=== PATIENT | female | born 1965 | race Caucasian/White ===

== ENCOUNTER → 2020-03-04 13:23 | Outpatient (CLI) | payer OTHER, SELFPAY ==
--- NOTE | ~2020-03-04 | MR_ITS ---
EXAMINATION: MR brain IAC wo/w con DATE: 03/04/2020 14:23 INDICATION: Left-sided tinnitus. TECHNIQUE: Magnetic resonance imaging (MRI) of the brain, brainstem, and internal auditory canals was performed without and with 15 L MultiHance intravenous contrast. Sequences included sagittal and axi al T1-weighted FSE, axial diffusion-weighted FS EPI, axial T2*-weighted GRE, axial T2-weighted FLAIR Propeller, axial T2-weighted Propeller, small hotjt-hc-wzbw coronal FIESTA, small kfari-ua-aegq coron al T1-weighted FSE, and small fqslj-ox-aowg axial T1-weighted SPGR. Postcontrast sequences included a xial T1-weighted FSE, small qgwpw-vp-uigg coronal T1-weighted FSE, and small amvft-as-rrvu axial T1-w eighted SPGR. Apparent diffusion coefficient (ADC) maps were created. COMPARISON: None. FINDINGS: There is no intracranial hemorrhage, acute infarction, or abnormal intracranial mass lesion . The ventricles are normal in size. The internal auditory canals and inner and middle ears are yehuda l. The mastoid air cells are normal. The paranasal sinuses are clear. The orbits are normal. IMPRESSION: 1. Normal brain. Reviewed, dictated and finalized at location A. YTICAL LAB ANALYST IMPRESSION: 1. Normal brain.
[2020-03-04 14:36] LABS: Estimated Glomerular Filt Rate > 60
== END ==
PROVIDERS: Visit Provider Otolaryngology
DX: H93.12 Tinnitus, left ear (principal)
CPT/HCPCS: 36415; 70553; 82565; A9577

== ENCOUNTER → 2021-01-20 10:42 | Outpatient (CLI) | payer OTHER, SELFPAY ==
--- NOTE | ~2021-01-20 | MMUS_ITS ---
EXAMINATION: MM diagnostic magda BI w ana cristina, US axilla LT HISTORY: Palpable left axillary lump. TECHNIQUE: Additional 3-D tomosynthesis images of the breasts were performed and synthetic 2-D images were generated. CAD analysis was submitted and interpreted. High resolution left axillary ultrasound was performed. COMPARISON: Comparison to multiple prior studies sequentially, with oldest reviewed study dated 11/13. BREAST PARENCHYMAL COMPOSITION: The breasts are heterogenously dense, which may obscure small masses. FINDINGS: MAMMOGRAPHIC FINDINGS: There are no suspicious masses, calcifications or architectural distortion in either breast to sugges t malignancy. ULTRASOUND: Left axillary ultrasound: In the area of palpable concern there is a 1.5 cm lymph node in the axilla. There is an additional smaller 1 cm lymph node in the left axilla. IMPRESSION: 1. Benign-appearing left axillary lymph nodes. No evidence for malignancy in either breast. 2. Routine yearly screening mammogram and regular clinical breast examination are recommended. BI-RADS Category 2: Benign finding(s). Reviewed, dictated and finalized at location A. IMPRESSION: 1. Benign-appearing left axillary lymph nodes. No evidence for malignancy in ei ther breast. 2. Routine yearly screening mammogram and regular clinical breast examination a re recommended. BI-RADS Category 2: Benign finding(s).
== END ==
PROVIDERS: PCP Family Medicine; Visit Provider Family Medicine
DX: R59.0 Localized enlarged lymph nodes (principal)
CPT/HCPCS: 76882; 77062; 77066; G0279

== ENCOUNTER 2022-01-12 15:33 | Outpatient (CLI) | payer OTHER, SELFPAY ==
--- NOTE | 2022-01-12 | ECG_ITS ---
Measurements Intervals [place] Rate: 84 P: 42 NC: 161 QRS: -16 QRSD: 91 T: 18 QT: 405 QTc: 481 Interpretive Statements SINUS RHYTHM WITH OCCASIONAL VENTRICULAR PREMATURE COMPLEXES NONSPECIFIC ST-T WAVE CHANGES NO PREVIOUS ECG AVAILABLE FOR COMPARISON Electronically Signed On 01-12-2022 16:30:13 CDT by Trish Wills M.D.
== END 2022-01-12 15:34 | disposition home or self-care (01) ==
LOC: ANHLAB 15:35
PROVIDERS: PCP Family Medicine; Visit Provider Orthopaedic Surgery
DX: Z01.818 Encounter for other preprocedural examination (principal)
CPT/HCPCS: 93005

== ENCOUNTER → 2022-08-25 15:16 | Outpatient (CLI) | payer OTHER, SELFPAY ==
--- NOTE | ~2022-08-25 | CT_ITS ---
EXAMINATION: CT abdomen pelvis wo con DATE: 08/25/2022 15:35 INDICATION: Abdominal pain TECHNIQUE: Computed tomography (CT) of the abdomen and pelvis was performed without intravenous contr ast. The dose-length product (DLP) was 946.71 mGy-cm. Automated exposure control and iterative recons truction technique were employed. COMPARISON: 05/17/2009 FINDINGS: There is a 3 mm nodule of the right middle lobe with surrounding inflammatory change, likel y infection/inflammation. The heart size is normal. The gallbladder is surgically absent. The liver, spleen, pancreas, and adrenal glands are normal. There is a 1.6 cm cyst of the right kidney. The left kidney is unremarkable. No pathologically enlarged abdominal or pelvic lymph nodes are identified. N o free intraperitoneal gas or evidence of bowel obstruction. There is mild lumbar spondylosis. IMPRESSION: 1. No CT correlate for the patient's symptoms. Reviewed, dictated and finalized at location F.
== END ==
PROVIDERS: PCP Family Medicine; Visit Provider Family Medicine
DX: R10.9 Unspecified abdominal pain (principal); R14.0 Abdominal distension (gaseous)
CPT/HCPCS: 74176